=== PATIENT | male | born 1945 | race African-American/Black ===

== ENCOUNTER 2019-03-17 20:19 | Emergency (ER) | payer OTHER ==
[~2019-03-17] VITALS: Ht 177.8 cm; Wt 84.4 kg
[~2019-03-17 20:19] MED LIST: ALPR1TAB2 PO; AMLO10TA PO; ASPI-1718 PO; BACTO TP; DIT5 PO; DOCU-299 PO; MONT10TA35 PO; NIFE10SG6 PO; OMEP40EC1 PO; ORE25 PO; OXYC1TAB PO; PANT40EC PO; PRED20TA5 PO; PRON INH; SIMV40TA1 PO; SPIR25TA PO; TEMA15CA24 PO; VAS2.5 PO; ZYL300 PO
[2019-03-17 20:27] VITALS: BP 118/84
--- NOTE | 2019-03-17 20:28 | NUR ---
EKG PERFORMED SHOWN TO DR BRICEÑO, PT TO [facility].
--- NOTE | 2019-03-17 21:11 | NUR ---
Pt wheel chair assisted to bed 7.
[2019-03-17 21:16] LABS: BASOPHILS % (AUTO) 0.4 % (0.0-2.0); EOSINOPHILS # (AUTO) 0.2 K/uL (0-0.4); EOSINOPHILS % (AUTO) 1.6 % (0.0-4.0); HEMATOCRIT 41.8 % (36-52); HEMOGLOBIN 13.3 g/dL (12.0-18.0); LYMPHOCYTES # (AUTO) 2.2 K/uL (2.0-11.5); LYMPHOCYTES % (AUTO) 19.1 % (20.5-51.1); MEAN CORPUSCULAR HEMOGLOBIN 28 pg (27-31); MEAN CORPUSCULAR HGB CONC 32 g/dL (33-37); MEAN CORPUSCULAR VOLUME 88.3 fL (80-94); MONOCYTES # (AUTO) 0.9 K/uL (0.8-1.0); MONOCYTES % (AUTO) 7.5 % (1.7-9.3); NEUTROPHILS # (AUTO) 8.1 K/uL (1.8-7.7); NEUTROPHILS % (AUTO) 71.4 % (42.2-75.2); PLATELET COUNT (AUTO) 140 K/uL (140-450); RED BLOOD CELL COUNT(AUTO) 4.73 MIL/uL (4.20-6.10); RED CELL DISTRIBUTION WIDTH 14.7 % (11.6-13.7); WHITE BLOOD COUNT (AUTO) 11.4 K/uL (4.8-10.8)
--- NOTE | 2019-03-17 21:24 | NUR ---
PT CAME TO ER C/O S/P MECHANICAL FALL FROM YESTERDAY. PT CAUGHT HIMSELF WITH HIS RIGHT ARM. PT C/O OF RIGHT HAND/WRIST PAIN THAT RADIATES UP TO RIGHT CHEST. PAIN LEVEL 9/10 CONSTANT, THROBBING. PT PLACED ON 2L OF OXYGEN. MED HX: HTN, HYPERLIPIDEMIA, GOUT, COPD. SAFETY MEASURES IN PLACE. WAITING FOR ERMD TO EVALUATE PT.
[2019-03-17 21:37] LABS: ANION GAP 9.6 (8-16); CARBON DIOXIDE 32.3 mmol/L (21-32); CHLORIDE 100 mmol/L (98-107); CREATININE 1.7 mg/dL (0.7-1.3); GLUCOSE 102 mg/dL (74-106); POTASSIUM 3.9 mmol/L (3.5-5.1); SODIUM SERUM 138 mmol/L (136-145); UREA NITROGEN, BLOOD 28 mg/dL (7-18)
[2019-03-17 21:43] LABS: ALBUMIN 3.6 g/dL (3.4-5.0); ASPARTATE AMINOTRANSFERASE 49 U/L (15-37); TOTAL BILIRUBIN 0.4 mg/dL (0.0-1.0)
[2019-03-17] MEDS ORDERED: MORPHINE SULFATE 4 MG/ML SYR IVP ONE (21:45)
--- NOTE | 2019-03-17 22:34 | NUR ---
X RAY AT BEDSIDE
--- NOTE | 2019-03-17 23:10 | NUR ---
PT RESTING IN BED WITH EYES CLOSED, EASILY ARROUSABLE. VSS. WILL CONTINUE TO MONITOR.
--- NOTE | 2019-03-18 | NUR ---
PT RESTING IN BED COMFORTABLY. VSS. WILL CONTINUE TO MONITOR.
--- NOTE | 2019-03-18 00:52 | NUR ---
EMT AT BEDSIDE APPLYING SPLINT TO RIGHT ARM
--- NOTE | 2019-03-18 01:54 | NUR ---
Patient discharged with v/s stable. Written and verbal after care instructions given and explained. Patient alert, oriented and verbalized understanding of instructions. Ambulatory with steady gait. All questions addressed prior to discharge. ID band removed. Patient advised to follow up with PMD. Rx of ACETAMINOPHEN WAS given. Patient educated on indication of medication including possible reaction and side effects. Opportunity to ask questions provided and answered.
[2019-03-18 01:55] VITALS: BP 123/74
== END 2019-03-18 01:55 | disposition home or self-care (01) ==
LOC: MED 20:19
DX: S52.021A Displaced fracture of olecranon process without intraarticular extension of right ulna, initial encounter for closed fracture (principal); S62.111A Displaced fracture of triquetrum [cuneiform] bone, right wrist, initial encounter for closed fracture; I11.0 Hypertensive heart disease with heart failure; I50.9 Heart failure, unspecified; J44.9 Chronic obstructive pulmonary disease, unspecified; Z79.82 Long term (current) use of aspirin; Z79.899 Other long term (current) drug therapy; W10.9XXA Fall (on) (from) unspecified stairs and steps, initial encounter; Y93.01 Activity, walking, marching and hiking; Y92.89 Other specified places as the place of occurrence of the external cause; Y99.8 Other external cause status
CPT/HCPCS: 29125; 36415; 71046; 73030; 73080; 73110; 73130; 80053; 83735; 84484; 85025; 93005; 96374; 99284; J2270; Q0092